=== PATIENT | female | born 1990 | race Caucasian/White ===

== ENCOUNTER 2023-12-04 14:31 | Outpatient (CLI) | payer OTHER | END 2023-12-04 16:22 | disposition home or self-care (01) | LOC: NST 14:31 | PROVIDERS: ATTEND Obstetrics & Gynecology Maternal & Fetal Medicine | DX: Z34.83 Encounter for supervision of other normal pregnancy, third trimester (principal) ==

== ENCOUNTER 2023-12-11 12:56 | Outpatient (CLI) | payer OTHER | END 2023-12-11 13:49 | disposition home or self-care (01) | LOC: NST 12:56 | PROVIDERS: ATTEND Obstetrics & Gynecology Maternal & Fetal Medicine | DX: Z34.83 Encounter for supervision of other normal pregnancy, third trimester (principal) ==

== ENCOUNTER 2023-12-18 09:34 | Outpatient (CLI) | payer OTHER | END 2023-12-18 10:14 | disposition home or self-care (01) | LOC: NST 09:34 | PROVIDERS: ATTEND Obstetrics & Gynecology Maternal & Fetal Medicine | DX: Z34.83 Encounter for supervision of other normal pregnancy, third trimester (principal) ==

== ENCOUNTER 2024-01-01 14:01 | Outpatient (CLI) | payer OTHER | END 2024-01-01 16:03 | disposition home or self-care (01) | LOC: NST 14:01 | PROVIDERS: ATTEND Obstetrics & Gynecology Maternal & Fetal Medicine | DX: Z34.83 Encounter for supervision of other normal pregnancy, third trimester (principal) ==

== ENCOUNTER 2024-01-08 10:28 | Outpatient (CLI) | payer OTHER | END 2024-01-08 11:58 | disposition home or self-care (01) | LOC: NST 10:28 | PROVIDERS: ATTEND Obstetrics & Gynecology Maternal & Fetal Medicine | DX: Z34.83 Encounter for supervision of other normal pregnancy, third trimester (principal) ==

== ENCOUNTER 2024-01-10 15:30 | Inpatient (IN) | payer OTHER ==
[~2024-01-10] VITALS: Ht 157.5 cm; Wt 2.7 kg
[2024-01-15] MEDS ORDERED: OXYTOCIN 500 ML IV NR (07:30)
[2024-01-15] MEDS ORDERED: RINGERS SOLUTION,LACTATED 1,000 ML IV SCH (07:30)
[2024-01-15 08:16] LABS: HEMATOCRIT 35.2 % (36.0-45.00); HEMOGLOBIN 12.5 g/dL (12.0-15.00); MEAN CELL VOLUME 87.1 fL (80.00-100.00); MEAN CORPUSCULAR HEMOGLOBIN 30.9 pg (27.00-32.0); MEAN CORPUSCULAR HGB CONC 35.5 g/dl (32.0-36.0); RED BLOOD COUNT 4.04 M/uL (4.00-6.00); RED CELL DISTRIBUTION WIDTH 16.8 % (11.5-14.5)
[2024-01-15] MEDS ORDERED: PRENATABS RX T1 EACH PO (08:22)
[2024-01-15 08:47] LABS: PLATELET COUNT 117 K/uL (150-450)
[2024-01-15 08:49] LABS: INR 0.98; PARTIAL THROMBOPLASTIN TIME 25.4 SECONDS (22.0-34.0); PROTHROMBIN TIME 10.3 SECONDS (9.0-11.5)
[2024-01-15 08:50] LABS: ALBUMIN 2.6 gm/dL (3.4-5.0); BILIRUBIN TOTAL 0.44 mg/dL (0.3-1.2); CREATININE SERUM 0.49 mg/dL (0.55-1.02); GFR 145.44; GLOBULINA 3.5 G/DL (2.4-3.5); POTASSIUM 3.66 mEq/L (3.5-5.1); TOTAL PROTEIN 6.1 gm/dL (6.4-8.2)
[2024-01-15] MEDS ORDERED: TERBUTALINE SULFATE 1 MG/ML AMPUL IV NR (11:00)
[2024-01-15] MEDS ORDERED: CEFAZOLIN SODIUM 1,000 MG VIAL IV ONE (11:00)
[2024-01-15] MEDS ORDERED: MEPERIDINE HCL/PF 25 MG/ML VIAL IV SCH (12:00)
[2024-01-15] MEDS ORDERED: OXYTOCIN 1,000 ML IV NR (12:00)
[2024-01-15] MEDS ORDERED: OXYTOCIN 10 UNITS/ML VIAL IV ONE (12:15)
[2024-01-15] MEDS ORDERED: ERYTHROMYCIN BASE 1 GM TUBE OP ONE ×2 (12:15)
[2024-01-15] MEDS ORDERED: PROMETHAZINE HCL 25 MG/ML AMPUL IV SCH (13:00)
[2024-01-16] MEDS ORDERED: ACETAMINOPHEN 500 MG GEL..CAP PO SCH (06:00)
[2024-01-16 07:05] LABS: HEMATOCRIT 32.5 % (36.0-45.00); HEMOGLOBIN 11.3 g/dL (12.0-15.00); MEAN CORPUSCULAR HEMOGLOBIN 30.9 pg (27.00-32.0); MEAN CORPUSCULAR HGB CONC 34.7 g/dl (32.0-36.0); RED BLOOD COUNT 3.65 M/uL (4.00-6.00)
[2024-01-16 07:44] LABS: PLATELET COUNT 109 K/uL (150-450)
[2024-01-16] MEDS ORDERED: DOCUSATE SODIUM 100MG CAP PO SCH (09:00)
[2024-01-16] MEDS ORDERED: PNV,CALCIUM 72/IRON/FOLIC ACID 1 TAB TABLET PO SCH (09:00)
[2024-01-16] MEDS ORDERED: GABAPENTIN 300 MG CAPSULE PO SCH (09:00)
[2024-01-16] MEDS ORDERED: SIMETHICONE 125 MG CAPSULE PO SCH (09:00)
== END 2024-01-18 14:38 | disposition home or self-care (01) | DRG 788 ==
LOC: LDR 01-15 05:48 → OB/GYN 01-15 05:48
PROVIDERS: Obstetrics & Gynecology Gynecology; ADMIT Obstetrics & Gynecology Maternal & Fetal Medicine; ATTEND Obstetrics & Gynecology Maternal & Fetal Medicine
PROC: 4A1HXCZ Monitoring of Products of Conception, Cardiac Rate, External Approach (ICD-10-PCS; 2024-01-15)
PROC: 3E033VJ Introduction of Other Hormone into Peripheral Vein, Percutaneous Approach (ICD-10-PCS; 2024-01-15)
PROC: 10D00Z1 Extraction of Products of Conception, Low, Open Approach (ICD-10-PCS; principal; 2024-01-15 11:00)
DX: O36.8131 Decreased fetal movements, third trimester, fetus 1 (principal); O30.043 Twin pregnancy, dichorionic/diamniotic, third trimester; Z3A.37 37 weeks gestation of pregnancy; Z37.2 Twins, both liveborn